=== PATIENT | female | born 1995 | race Caucasian/White ===

== ENCOUNTER 2018-06-14 08:59 | Outpatient (CLI) | payer OTHER ==
--- NOTE | 2018-06-14 10:17 | ULT ---
RIGHT UPPER QUADRANT ULTRASOUND: Indication: Chest pain, abdominal pain. FINDINGS: There is no focal pathologic lesion. No acute gallbladder pathology. The common duct is normal measur ing 2 mm. No ascites. IMPRESSION: No acute gallbladder pathology. POS: [facility]
== END 2018-06-14 09:00 | disposition home or self-care (01) ==
LOC: SCSULT 08:59
PROVIDERS: ATTEND Internal Medicine Gastroenterology
DX: R07.9 Chest pain, unspecified (principal)
CPT/HCPCS: 76705

== ENCOUNTER 2018-07-24 14:57 | Outpatient (CLI) | payer OTHER | END 2018-07-24 14:58 | disposition home or self-care (01) | LOC: BICRAD 14:57 | PROVIDERS: ATTEND Internal Medicine Gastroenterology | DX: R07.9 Chest pain, unspecified (principal) | CPT/HCPCS: 71046 ==